=== PATIENT | female | born 1970 | race Caucasian/White ===

== ENCOUNTER → 2017-11-28 | Outpatient (CLI) | payer OTHER ==
[~2017-11-28] MED LIST: ABAC300; ACYC400 PO; ASPI81EC PO; ATOR80 PO; CARV25 PO; CLOP75 PO; CRUTCH4 XX; FURO20 PO; FURO40 PO; HYDACE5325 PO; HYDPAM50 PO; HYDR1TAB94 PO; Keflex500 MG PO; LISI20 PO; LISI5 PO; Lasix PO; METO100ER PO; METO25ER PO; METO50 PO; MULTIVIT PO; NAPR500 PO; NITR.4SL SL; Norco 5-325 Ta1 EACH PO; ONE DAILY COMP1 EACH PO; PANT40 PO; PAPAYA ENZYMES; POTA10T PO; POTCHL20ER PO; PRAM.125 PO; PRENATAL VITAM1 EAC2 PO; ROSU10TA PO; SENN187 PO; SERT100 PO; SPIR25 PO; VIT D; VITAMIN D5000 UNIT PO; WARF5 PO; Zovirax400 MG PO; [UNRECOGNIZED DRUG - OTHER] PO
[2017-11-30 12:41] LABS: HPV Genotype 16 Not Detected (NOTDET); HPV Genotype 18 Not Detected (NOTDET)
[2017-12-04 10:51] LABS: HPV High Risk Other Detected (NOTDET)
== END | disposition home or self-care (01) ==
LOC: LAB 14:13
PROVIDERS: Obstetrics & Gynecology
DX: Z01.419 Encounter for gynecological examination (general) (routine) without abnormal findings (principal)
CPT/HCPCS: 87624; G0123

== ENCOUNTER → 2017-11-29 | Outpatient (CLI) | payer OTHER | LOC: LAB SHORT 11:29 → LAB 11:29 | DX: L91.8 Other hypertrophic disorders of the skin (principal) | CPT/HCPCS: 88305 ==

== ENCOUNTER → 2018-01-03 | Outpatient (CLI) | payer OTHER | END | disposition home or self-care (01) | LOC: LAB EV 08:11 | DX: J02.9 Acute pharyngitis, unspecified (principal) | CPT/HCPCS: 87070; 87147 ==

== ENCOUNTER → 2018-06-19 | Outpatient (CLI) | payer OTHER ==
[~2018-06-19] MED LIST changes: -FURO20 PO; -LISI5 PO; -ROSU10TA PO
== END | disposition home or self-care (01) ==
LOC: LAB EV 12:08 → LAB SHORT 12:08
DX: R32 Unspecified urinary incontinence (principal)
CPT/HCPCS: 87077; 87086; 87186

== ENCOUNTER → 2018-07-05 | Outpatient (CLI) | payer OTHER ==
[2018-07-09 00:14] LABS: CHLAMYDIA TRACHOMATIS, NAA Negative (Negative); NEISSERIA GONORRHOEAE, NAA Negative (Negative)
== END ==
LOC: LAB EV 17:08 → LAB SHORT 17:08
PROVIDERS: Nurse Practitioner
DX: R10.2 Pelvic and perineal pain (principal)
CPT/HCPCS: 87070; 87205; 87491; 87591

== ENCOUNTER → 2019-02-04 | Outpatient (CLI) | payer OTHER ==
[~2019-02-04] MED LIST changes: +FURO20 PO; +LISI5 PO; +ROSU10TA PO
== END | disposition home or self-care (01) ==
LOC: LAB SHORT 15:30 → LAB EV 15:30
DX: R30.0 Dysuria (principal)
CPT/HCPCS: 87077; 87086; 87186

== ENCOUNTER → 2019-02-19 | Outpatient (CLI) | payer OTHER | END | disposition home or self-care (01) | LOC: LAB SHORT 13:11 → PLD 13:11 | DX: R87.618 Other abnormal cytological findings on specimens from cervix uteri (principal) | CPT/HCPCS: 88305 ==

== ENCOUNTER 2019-06-23 15:43 | Observation (INO) | payer OTHER ==
[~2019-06-23] VITALS: Ht 170.2 cm; Wt 93.9 kg
[~2019-06-23 15:43] MED LIST changes: +ASPI81CH; -ASPI81EC PO; +Crestor20 MG PO; -LISI5 PO; +Prinivil10 MG PO; -ROSU10TA PO
[2019-06-23 16:37] LABS: BASOPHILS ABSOLUTE AUTO 0.03 K/mm3 (0.00-0.23); BASOPHILS PERCENT AUTO 0 % (0-2); EOSINOPHILS ABSOLUTE AUTO 0.16 K/mm3 (0.00-0.68); EOSINOPHILS PERCENT AUTO 2 % (0-6); Hematocrit 45.7 % (33.0-51.0); Hemoglobin 14.9 g/dL (11.5-16.0); IMMATURE GRAN ABSOLUTE AUTO 0.02 K/mm3 (0.00-0.10); IMMATURE GRAN PERCENT AUTO 0 % (0-1); LYMPHOCYTES ABSOLUTE AUTO 2.97 K/mm3 (0.84-5.20); LYMPHOCYTES PERCENT AUTO 31 % (21-46); MONOCYTES ABSOLUTE AUTO 0.58 K/mm3 (0.16-1.47); MONOCYTES PERCENT AUTO 6 % (4-13); Mean Corpuscular HGB 29.6 pg (26.0-34.0); Mean Corpuscular HGB Conc 32.6 g/dL (31.5-36.5); Mean Corpuscular Volume 91 fL (80-100); Mean Platelet Volume 9.5 fL (9.1-12.4); NEUTROPHILS ABSOLUTE AUTO 5.73 K/mm3 (1.96-9.15); NEUTROPHILS PERCENT AUTO 60 % (41-73); Platelet Count 288 K/mm3 (150-400); RDW Coefficient Variation 13.4 % (11.7-14.2); RDW Standard Deviation 44.6 fL (35.1-46.3); Red Blood Cell Count 5.04 M/mm3 (3.80-5.20); White Blood Cell Count 9.49 K/mm3 (4.00-11.30)
[2019-06-23 16:58] LABS: Alanine Aminotransfer (ALT/SGP 27 U/L (12-78); Albumin, Blood 3.4 g/dL (3.4-5.0); Albumin/Globulin Ratio 0.9 (0.8-1.8); Alk Phos 75 U/L (50-136); Anion Gap 7 mmol/L (6-16); Aspartate Aminotrans (AST/SGOT 12 U/L (12-37); Bilirubin, Total 0.2 mg/dL (0.1-1.0); Blood Urea Nitrogen 13 mg/dL (8-24); Bun/Creatinine Ratio 22.8 (12.0-20.0); CO2, Blood 23 mmol/L (21-32); Calcium, Blood 8.3 mg/dL (8.5-10.1); Chloride, Blood 111 mmol/L (98-108); Creatinine, Blood 0.57 mg/dL (0.40-1.00); Globulin, Blood 3.6 g/dL (2.2-4.0); Glomerular Filtration Rate >60 (60-); Glucose, Blood 82 mg/dL (70-99); Potassium, Blood 3.8 mmol/L (3.5-5.5); Sodium, Blood 141 mmol/L (136-145); Troponin I 0.134 ng/mL (0.000-0.040)
--- NOTE | 2019-06-23 17:36 | NUR ---
PT IN ED 2, SCANNED DAN[facility] SUBQICD WITH [facility] SCANNAR ER SCANNER DOES NOT WORK WITH THIS DEVICE. SUBQICD APPEARS TO BE WORKING NORMALLY, NO SHOCKS OR EPISODES RECORDED. REPORT TO ALLAN TAYLOR (ED2) WHO STATES HE WILL INFORM ED DOCTOR.
--- NOTE | 2019-06-23 23:34 | NUR ---
PT ADMITTED FROM ED AT APPROX 2009 FOR SUDDEN LEFT ARM WEAKNESS+NUMBNESS AND BLURRED VISION TO L EYE. PT REPORTED TO HAVE HEADACHE AND COLD SWEATS AFTER EPISODE OF SUDDEN WEAKNESS. PT NOW REPORTS THAT THE ABOVE S/SX HAVE RESOLVED. NEGATIVE CT IN ER. NO COMPLAINTS AT THIS TIME. PT IS A&O X4. STRENGTH EQUAL BILATERALLY. INDEPENDENT IN ROOM. TELE SHOWS NSR AT 77 PER TECHNICIAN ASSISTANT. WILL CTM.
--- NOTE | 2019-06-24 04:37 | NUR ---
SHIFT SUMMARY: PT A&O X4 T/O SHIFT. VS WNL. NO NEW EPISODES OF WEAKNESS, NUMBNESS OR BLURRED VISION. S/SX REMAIN RESOLVED. PT C/O HEADACHE WHICH SHE HAS HAD MOST OF DAY. GIVEN AN ICE PACK FOR COMFORT. PT RESTING THROUGHOUT NIGHT. INDEPENDENT IN ROOM AND VOIDING WELL.
[2019-06-24 04:43] LABS: BASOPHILS ABSOLUTE AUTO 0.03 K/mm3 (0.00-0.23); BASOPHILS PERCENT AUTO 0 % (0-2); EOSINOPHILS ABSOLUTE AUTO 0.29 K/mm3 (0.00-0.68); EOSINOPHILS PERCENT AUTO 4 % (0-6); Hematocrit 45.5 % (33.0-51.0); Hemoglobin 14.9 g/dL (11.5-16.0); IMMATURE GRAN ABSOLUTE AUTO 0.01 K/mm3 (0.00-0.10); IMMATURE GRAN PERCENT AUTO 0 % (0-1); LYMPHOCYTES ABSOLUTE AUTO 3.15 K/mm3 (0.84-5.20); LYMPHOCYTES PERCENT AUTO 42 % (21-46); MONOCYTES ABSOLUTE AUTO 0.56 K/mm3 (0.16-1.47); MONOCYTES PERCENT AUTO 8 % (4-13); Mean Corpuscular HGB 29.6 pg (26.0-34.0); Mean Corpuscular HGB Conc 32.7 g/dL (31.5-36.5); Mean Corpuscular Volume 91 fL (80-100); Mean Platelet Volume 9.2 fL (9.1-12.4); NEUTROPHILS ABSOLUTE AUTO 3.47 K/mm3 (1.96-9.15); NEUTROPHILS PERCENT AUTO 46 % (41-73); Platelet Count 250 K/mm3 (150-400); RDW Coefficient Variation 13.5 % (11.7-14.2); RDW Standard Deviation 44.9 fL (35.1-46.3); Red Blood Cell Count 5.03 M/mm3 (3.80-5.20); White Blood Cell Count 7.51 K/mm3 (4.00-11.30)
[2019-06-24 05:04] LABS: Anion Gap 5 mmol/L (6-16); Blood Urea Nitrogen 12 mg/dL (8-24); Bun/Creatinine Ratio 21.4 (12.0-20.0); CO2, Blood 24 mmol/L (21-32); Calcium, Blood 8.1 mg/dL (8.5-10.1); Chloride, Blood 111 mmol/L (98-108); Creatinine, Blood 0.56 mg/dL (0.40-1.00); Glomerular Filtration Rate >60 (60-); Glucose, Blood 87 mg/dL (70-99); Magnesium, Blood 2.1 mg/dL (1.6-2.4); Sodium, Blood 140 mmol/L (136-145)
--- NOTE | 2019-06-24 13:40 | NUR ---
DISCHARGE DISCHARGE MEDICATIONS AND INSTRUCTIONS EXPLAINED TO PATIENT. SHE STATED UNDERSTANDING. HOMAR WILL CALL PATIENT WITH FOLLOW UP APPOINTMENT. IV REMOVED WITHOUT DIFFICULTY. BELONGINGS WITH PATIENT. PATIENT AMBULATED TO PRIVATE VEHICLE.
== END 2019-06-24 13:25 | disposition home or self-care (01) ==
LOC: ER 15:43 → MEDS 15:44 → ENPENDDIS 06-24 13:05 → MEDS 06-24 13:25
PROVIDERS: Emergency Medicine; ADMIT Internal Medicine
DX: R25.1 Tremor, unspecified (principal); R20.2 Paresthesia of skin; G45.4 Transient global amnesia; I25.10 Atherosclerotic heart disease of native coronary artery without angina pectoris; I25.5 Ischemic cardiomyopathy; E78.5 Hyperlipidemia, unspecified; F32.9 Major depressive disorder, single episode, unspecified; I47.2 Ventricular tachycardia; I51.9 Heart disease, unspecified; K21.9 Gastro-esophageal reflux disease without esophagitis; G25.81 Restless legs syndrome; Z95.810 Presence of automatic (implantable) cardiac defibrillator; Z95.5 Presence of coronary angioplasty implant and graft; Z88.5 Allergy status to narcotic agent; Z88.2 Allergy status to sulfonamides; Z79.899 Other long term (current) drug therapy
CPT/HCPCS: 36415; 70450; 71045; 80048; 80053; 83735; 83880; 84484; 85025; 93005; 93010; 93261; 96372; 99285-25; G0378; J1650

== ENCOUNTER → 2019-10-06 | Outpatient (CLI) | payer OTHER | END | disposition home or self-care (01) | LOC: LAB EV 11:40 → LAB SHORT 11:40 | DX: N39.0 Urinary tract infection, site not specified (principal) | CPT/HCPCS: 87077; 87086; 87186 ==

== ENCOUNTER → 2020-01-08 | Outpatient (CLI) | payer OTHER | LOC: LAB SHORT 09:30 → LAB EV 09:30 | DX: R30.0 Dysuria (principal) | CPT/HCPCS: 87086 ==

== ENCOUNTER → 2020-02-11 | Outpatient (CLI) | payer OTHER | END | disposition home or self-care (01) | LOC: LAB SHORT 12:00 → LAB EV 12:00 | DX: R30.0 Dysuria (principal) | CPT/HCPCS: 87077; 87086; 87186 ==

== ENCOUNTER → 2020-08-19 | Outpatient (CLI) | payer OTHER ==
[2020-08-20 09:10] LABS: HIV SCREEN 4TH GENERATION WRFX Non Reactive (Non Reactive)
[2020-08-21 11:09] LABS: CHLAMYDIA TRACHOMATIS, NAA Negative (Negative); NEISSERIA GONORRHOEAE, NAA Negative (Negative)
== END | disposition home or self-care (01) ==
LOC: LAB SHORT 18:11 → LAB EV 18:11
PROVIDERS: Physician Assistant Surgical
DX: N76.0 Acute vaginitis (principal)
CPT/HCPCS: 86592; 87070; 87077; 87086; 87186; 87205; 87389; 87491; 87591

== ENCOUNTER → 2022-03-07 | Outpatient (CLI) | payer OTHER | END | disposition home or self-care (01) | LOC: LAB SHORT 13:15 → PLD 13:15 | DX: N93.9 Abnormal uterine and vaginal bleeding, unspecified (principal) | CPT/HCPCS: 88305 ==

== ENCOUNTER → 2022-08-13 | Outpatient (CLI) | payer OTHER | END | disposition home or self-care (01) | LOC: LAB SHORT 15:41 → LAB 15:41 | DX: N30.01 Acute cystitis with hematuria (principal) | CPT/HCPCS: 87077; 87086; 87186 ==

== ENCOUNTER → 2022-08-13 | Outpatient (CLI) | payer OTHER ==
[2022-08-13 15:00] LABS: BASOPHILS ABSOLUTE AUTO 0.03 K/mm3 (0.00-0.23); BASOPHILS PERCENT AUTO 0 % (0-2); EOSINOPHILS ABSOLUTE AUTO 0.19 K/mm3 (0.00-0.68); EOSINOPHILS PERCENT AUTO 2 % (0-6); Hematocrit 43.9 % (33.0-51.0); Hemoglobin 14.8 g/dL (11.5-16.0); IMMATURE GRAN ABSOLUTE AUTO 0.04 K/mm3 (0.00-0.10); IMMATURE GRAN PERCENT AUTO 0 % (0-1); LYMPHOCYTES ABSOLUTE AUTO 1.97 K/mm3 (0.84-5.20); LYMPHOCYTES PERCENT AUTO 16 % (21-46); MONOCYTES ABSOLUTE AUTO 0.57 K/mm3 (0.16-1.47); MONOCYTES PERCENT AUTO 5 % (4-13); Mean Corpuscular HGB 29.3 pg (26.0-34.0); Mean Corpuscular HGB Conc 33.7 g/dL (31.5-36.5); Mean Corpuscular Volume 87 fL (80-100); Mean Platelet Volume 8.9 fL (9.1-12.4); NEUTROPHILS ABSOLUTE AUTO 9.84 K/mm3 (1.96-9.15); NEUTROPHILS PERCENT AUTO 78 % (41-73); Platelet Count 345 K/mm3 (150-400); RDW Coefficient Variation 14.2 % (11.7-14.2); RDW Standard Deviation 44.7 fL (35.1-46.3); Red Blood Cell Count 5.05 M/mm3 (3.80-5.20); White Blood Cell Count 12.64 K/mm3 (4.00-11.30)
[2022-08-13 15:06] LABS: Bun/Creatinine Ratio 26.1 (12.0-20.0); Calcium, Blood 8.9 mg/dL (8.5-10.1); Creatinine, Blood 0.69 mg/dL (0.40-1.00); Potassium, Blood 4.1 mmol/L (3.5-5.5)
== END | disposition home or self-care (01) ==
LOC: LAB 14:56 → LAB SHORT 14:56
PROVIDERS: Physician Assistant Medical
DX: R34 Anuria and oliguria (principal)
CPT/HCPCS: 80048; 85025

== ENCOUNTER → 2022-11-01 | Outpatient (CLI) | payer OTHER ==
[2022-11-01 16:40] LABS: Source, Urine Clean Catch
[2022-11-01 20:01] LABS: Appearance, Urine Hazy (Clear); Bilirubin, Urine Neg (Neg); Blood, Urine Neg (Neg); Color, Urine Yellow (P-Yellow); Glucose Qualitative, Urine Neg (Neg); Ketones, Urine Neg (Neg); Leukocyte Esterase, Urine 2+ (Neg); Nitrite, Urine Neg (Neg); Protein, Urine 1+ (Neg); Urobilinogen, Urine NORM (Normal)
[2022-11-01 20:24] LABS: Bacteria Many /hpf; Red Blood Cells, Urine 0-2 /hpf (0-2); Squamous Epithelial Cells Mod /hpf (Few)
[2022-11-02 10:08] LABS: Candida species (DNA Probe) Negative (NEGATIVE); G. vaginalis (DNA Probe) Positive (NEGATIVE); T. vaginalis (DNA Probe) Negative (NEGATIVE)
== END | disposition home or self-care (01) ==
LOC: LAB SHORT 16:37
PROVIDERS: Obstetrics & Gynecology
DX: N76.0 Acute vaginitis (principal); R30.0 Dysuria
CPT/HCPCS: 81001; 87086; 87480; 87510; 87660